=== PATIENT | male | born 1975 | race Caucasian/White ===

== ENCOUNTER 2022-05-13 15:58 | Inpatient (IN) | payer MEDICARE ==
[~2022-05-13] VITALS: Ht 170.2 cm; Wt 92.1 kg
[2022-05-13 20:28] LABS: BASOPHILS % 0.4 % (0.0-2.0); EOSINOPHILS % 3.6 % (0.0-5.0); HEMATOCRIT. 27.7 % (42.0-52.0); HEMOGLOBIN. 9.5 g/dL (14.0-18.0); LYMPHOCYTES % 19.8 % (20.0-50.0); MEAN CORPUSCULAR HEMOGLOBIN 33.7 pg (28.0-32.0); MEAN CORPUSCULAR VOLUME 98.4 fL (80.0-94.0); MEAN PLATELET VOLUME 8.4 fl (7.4-10.4); MONOCYTES % 7.6 % (2.0-8.0); NEUTROPHILS % 68.6 % (40.0-76.0); PLATELET 181 x1000/uL (130-400); RED BLOOD CELL COUNT 2.82 mill/uL (4.7-6.1); RED CELL DISTRIBUTION WIDTH 15.5 % (11.6-14.6)
[2022-05-13 20:33] LABS: CHLORIDE 93 mEq/L (98-107)
[2022-05-13] MEDS ORDERED: MAGNESIUM/ALUMINUM HYDROXIDE/SIMETHICONE 30ML UDC PO PRN (22:00)
[2022-05-13] MEDS ORDERED: DEXTROSE 50% WATER 50ML SYRINGE IV PRN (22:00)
[2022-05-13] MEDS ORDERED: GUAIFENESIN 200MG/10ML SUGAR FREE UDC PO PRN (22:00)
[2022-05-13] MEDS ORDERED: IPRATROPIUM/ALBUTEROL 0.5-3(2.5)MG/3ML NEB NEB PRN (22:00)
[2022-05-13] MEDS ORDERED: ZOLPIDEM TARTRATE 5MG TABLET PO PRN (22:00)
[2022-05-13] MEDS ORDERED: NA PHOS,M-B/NA PHOS,DI-BA ENEMA 118ML PR PRN (22:00)
[2022-05-13] MEDS ORDERED: NITROGLYCERIN 0.4MG TABLET SL SL PRN (22:00)
[2022-05-13] MEDS ORDERED: CLONIDINE 0.1MG TABLET PO PRN (22:00)
[2022-05-13] MEDS ORDERED: DOCUSATE SODIUM 100MG CAPSULE PO PRN (22:00)
[2022-05-13] MEDS ORDERED: ACETAMINOPHEN 325MG TABLET PO PRN (22:00)
[2022-05-13] MEDS ORDERED: ASPIRIN 325MG EC TABLET PO ONE (22:15)
[2022-05-13] MEDS ORDERED: TRAMADOL 50MG TABLET PO ONE (22:15)
[2022-05-13 22:49] LABS: T4 FREE 1.15 ng/dL (0.76-1.46)
[2022-05-13 23:03] LABS: FOLIC ACID (FOLATE) SERUM 6.8 ng/mL (>5.38)
[2022-05-13 23:17] LABS: CREATINE KINASE MB FRACTION 1.2 ng/mL (0.5-3.6)
[2022-05-13] MEDS: ENOXAPARIN 30MG/0.3ML SYR SUBCUT SCH (23:19)
[2022-05-13] MEDS: INSULIN GLARGINE 100 UNITS/ML SUBCUT SCH (23:57)
[2022-05-14] VITALS (10 sets, daily range): BP systolic 101–114; BP diastolic 54–70
[2022-05-14 00:40] LABS: BG BASE EXCESS 5.9 mmol/L (-2.0-2.0); BG CARBOXYHEMOGLOBIN 0.6 % (0.5-1.5); BG DEOXYHEMOGLOBIN 4.2 % (0.0-5.0); BG FRACTION INSPIRED OXYGEN 44; BG HCO3 ACT 30.3 mmol/L (22.0-26.0); BG METHEMOGLOBIN 0.3 % (0.0-1.5); BG OXYGEN SATURATION 95.8 % (92.0-98.5); BG OXYHEMOGLOBIN 94.9 % (94.0-97.0); BG PCO2 43.4 mmHg (35.0-45.0); BG PH 7.462 (7.350-7.450); BG PO2 78.2 mmHg (75.0-100.0); BG SAMPLE SITE RIGHT BRACHIAL; BG TOTAL HEMOGLOBIN 10.4 g/dL (12.0-18.0); BG VENT MODE NASAL CANNULA
[2022-05-14] MEDS ORDERED: POTASSIUM CHLORIDE 20MEQ TABLET SR PO NR (01:00)
[2022-05-14 05:28] LABS: BASOPHILS % 0.3 % (0.0-2.0); EOSINOPHILS % 5.5 % (0.0-5.0); HEMATOCRIT. 26.8 % (42.0-52.0); HEMOGLOBIN. 9.4 g/dL (14.0-18.0); LYMPHOCYTES % 28.3 % (20.0-50.0); MEAN CORPUSCULAR HEMOGLOBIN 34.9 pg (28.0-32.0); MEAN CORPUSCULAR VOLUME 99.2 fL (80.0-94.0); MEAN PLATELET VOLUME 8.8 fl (7.4-10.4); MONOCYTES % 8.8 % (2.0-8.0); NEUTROPHILS % 57.1 % (40.0-76.0); PLATELET 181 x1000/uL (130-400); RED CELL DISTRIBUTION WIDTH 15.3 % (11.6-14.6)
[2022-05-14 05:33] LABS: CHLORIDE 93 mEq/L (98-107)
[2022-05-14 05:41] LABS: CREATINE KINASE MB FRACTION 1.3 ng/mL (0.5-3.6); PHOSPHORUS 3.9 mg/dL (2.5-4.9)
[2022-05-14] MEDS ORDERED: AZITHROMYCIN 500 MG in DEXT 5% WATER 250 ML IV SCH (07:00)
[2022-05-14] MEDS: BLOOD SUGAR DIAGNOSTIC STRIP TEST SCH ×4 (08:05→21:36)
[2022-05-14] MEDS: SEVELAMER CARBONATE 800 MG TABLET PO SCH ×3 (08:17→18:02)
[2022-05-14] MEDS: INSULIN LISPRO 100 UNITS/ML SUBCUT SCH ×4 (08:18→21:35)
[2022-05-14] MEDS ORDERED: ALBUTEROL (0.083%) 2.5MG/3ML NEB HHN PRN (11:15)
[2022-05-14] MEDS ORDERED: IPRATROPIUM BROMIDE (0.02%) 0.5MG/2.5ML NEB HHN PRN (11:15)
[2022-05-14 16:04] LABS: HEPATITIS B SURFACE ANTIGEN NEGATIVE
[2022-05-14] MEDS: ACETAMINOPHEN 325MG TABLET PO PRN (20:29)
[2022-05-14] MEDS: ENOXAPARIN 30MG/0.3ML SYR SUBCUT SCH (21:00)
[2022-05-14] MEDS: EPOETIN ALFA-EPBX 4,000 UNIT/ML VIAL SUBCUT SCH (21:35)
[2022-05-14] MEDS: INSULIN GLARGINE 100 UNITS/ML SUBCUT SCH (21:35)
[2022-05-14] MEDS: ONDANSETRON HCL 4MG/2ML INJ IV PRN (22:48)
[2022-05-15] VITALS (18 sets, daily range): BP systolic 92–140; BP diastolic 40–91
[2022-05-15] MEDS: ACETAMINOPHEN 325MG TABLET PO PRN ×3 (02:38→23:07)
[2022-05-15] MEDS ORDERED: SODIUM CHLORIDE 0.9% 1000ML BAG (SEPSIS BOLUS) IV ONE (03:15)
[2022-05-15] MEDS ORDERED: SODIUM CHLORIDE 0.9% 500 ML IV NR (03:30)
[2022-05-15] MEDS: BLOOD SUGAR DIAGNOSTIC STRIP TEST SCH ×4 (06:32→20:37)
[2022-05-15 07:15] LABS: BASOPHILS % 0.4 % (0.0-2.0); EOSINOPHILS % 6.4 % (0.0-5.0); HEMATOCRIT. 28.1 % (42.0-52.0); HEMOGLOBIN. 9.6 g/dL (14.0-18.0); MEAN CORPUSCULAR HEMOGLOBIN 34.1 pg (28.0-32.0); MEAN CORPUSCULAR VOLUME 99.2 fL (80.0-94.0); MEAN PLATELET VOLUME 9.2 fl (7.4-10.4); MONOCYTES % 10.3 % (2.0-8.0); NEUTROPHILS % 57.9 % (40.0-76.0); PLATELET 180 x1000/uL (130-400); RED BLOOD CELL COUNT 2.83 mill/uL (4.7-6.1)
[2022-05-15 07:43] LABS: PHOSPHORUS 4.6 mg/dL (2.5-4.9)
[2022-05-15] MEDS: INSULIN LISPRO 100 UNITS/ML SUBCUT SCH ×4 (08:10→20:37)
[2022-05-15] MEDS: ASPIRIN 325MG EC TABLET PO SCH ×2 (10:18→10:21)
[2022-05-15] MEDS: SEVELAMER CARBONATE 800 MG TABLET PO SCH ×3 (10:18→18:02)
[2022-05-15] MEDS: CEFTRIAXONE 2 G in DEXTROSE 5% WATER 50 ML IV SCH ×2 (10:18→10:20)
[2022-05-15] MEDS: FAMOTIDINE 20MG TABLET PO SCH ×2 (10:19→10:20)
[2022-05-15] MEDS: AMLODIPINE 10MG TABLET PO SCH ×2 (10:19→10:20)
[2022-05-15] MEDS: INSULIN GLARGINE 100 UNITS/ML SUBCUT SCH (20:37)
[2022-05-15] MEDS: ENOXAPARIN 30MG/0.3ML SYR SUBCUT SCH (20:38)
[2022-05-15] MEDS: ONDANSETRON HCL 4MG/2ML INJ IV PRN (23:07)
[2022-05-16] VITALS: BP 120/67
[2022-05-16 04:00] VITALS: BP 114/72
[2022-05-16 07:07] LABS: BASOPHILS % 0.6 % (0.0-2.0); EOSINOPHILS % 7.5 % (0.0-5.0); HEMATOCRIT. 27.5 % (42.0-52.0); HEMOGLOBIN. 9.5 g/dL (14.0-18.0); LYMPHOCYTES % 33.9 % (20.0-50.0); MEAN CORPUSCULAR VOLUME 98.5 fL (80.0-94.0); MEAN PLATELET VOLUME 9.1 fl (7.4-10.4); MONOCYTES % 11.6 % (2.0-8.0); NEUTROPHILS % 46.4 % (40.0-76.0); PLATELET 178 x1000/uL (130-400); RED CELL DISTRIBUTION WIDTH 15.5 % (11.6-14.6)
[2022-05-16 07:16] LABS: PHOSPHORUS 3.8 mg/dL (2.5-4.9)
[2022-05-16 07:58] VITALS: BP 132/76
[2022-05-16] MEDS: BLOOD SUGAR DIAGNOSTIC STRIP TEST SCH ×4 (07:59→21:00)
[2022-05-16] MEDS: CEFTRIAXONE 2 G in DEXTROSE 5% WATER 50 ML IV SCH (08:00)
[2022-05-16] MEDS: SEVELAMER CARBONATE 800 MG TABLET PO SCH ×3 (08:00→16:43)
[2022-05-16] MEDS: ASPIRIN 325MG EC TABLET PO SCH (08:01)
[2022-05-16] MEDS: INSULIN LISPRO 100 UNITS/ML SUBCUT SCH ×4 (08:01→21:00)
[2022-05-16] MEDS: AMLODIPINE 10MG TABLET PO SCH (08:02)
[2022-05-16] MEDS: AZITHROMYCIN 500 MG TABLET PO SCH (08:03)
[2022-05-16] MEDS: FAMOTIDINE 20MG TABLET PO SCH (08:03)
[2022-05-16] MEDS: ACETAMINOPHEN 325MG TABLET PO PRN (08:59)
[2022-05-16 12:00] VITALS: BP 116/76
[2022-05-16 12:18] LABS: BG DEOXYHEMOGLOBIN 29.8 % (0.0-5.0); BG FRACTION INSPIRED OXYGEN 21; BG HCO3 ACT 27.7 mmol/L (22.0-26.0); BG METHEMOGLOBIN 0.3 % (0.0-1.5); BG OXYGEN SATURATION 69.8 % (92.0-98.5); BG OXYHEMOGLOBIN 68.9 % (94.0-97.0); BG PCO2 67.6 mmHg (35.0-45.0); BG PO2 40.9 mmHg (75.0-100.0); BG SAMPLE SITE RIGHT BRACHIAL; BG TOTAL HEMOGLOBIN 11.2 g/dL (12.0-18.0); BG VENT MODE ROOM AIR
[2022-05-16 15:44] LABS: BG BASE EXCESS 0.3 mmol/L (-2.0-2.0); BG CARBOXYHEMOGLOBIN 0.8 % (0.5-1.5); BG DEOXYHEMOGLOBIN 11.5 % (0.0-5.0); BG FRACTION INSPIRED OXYGEN 21; BG HCO3 ACT 26.6 mmol/L (22.0-26.0); BG METHEMOGLOBIN 0.3 % (0.0-1.5); BG OXYGEN SATURATION 88.4 % (92.0-98.5); BG OXYHEMOGLOBIN 87.4 % (94.0-97.0); BG PCO2 51.1 mmHg (35.0-45.0); BG PH 7.335 (7.350-7.450); BG PO2 55.4 mmHg (75.0-100.0); BG SAMPLE SITE RIGHT RADIAL; BG TOTAL HEMOGLOBIN 10.5 g/dL (12.0-18.0); BG VENT MODE ROOM AIR
[2022-05-16 15:57] VITALS: BP 118/66
[2022-05-16 20:00] VITALS: BP 133/79
[2022-05-16] MEDS: EPOETIN ALFA-EPBX 4,000 UNIT/ML VIAL SUBCUT SCH (21:12)
[2022-05-16] MEDS: INSULIN GLARGINE 100 UNITS/ML SUBCUT SCH (21:13)
[2022-05-16] MEDS: ENOXAPARIN 30MG/0.3ML SYR SUBCUT SCH (21:13)
[2022-05-17] VITALS: BP 126/74
[2022-05-17 04:00] VITALS: BP 130/76
[2022-05-17] MEDS: BLOOD SUGAR DIAGNOSTIC STRIP TEST SCH ×2 (06:22→12:55)
[2022-05-17 06:46] LABS: INR 1.2; PROTHROMBIN TIME 12.6 sec (9.6-11.0)
[2022-05-17] MEDS: INSULIN LISPRO 100 UNITS/ML SUBCUT SCH ×2 (07:58→12:55)
[2022-05-17 08:00] VITALS: BP 168/78
[2022-05-17] MEDS: AZITHROMYCIN 500 MG TABLET PO SCH (08:00)
[2022-05-17] MEDS: CEFTRIAXONE 2 G in DEXTROSE 5% WATER 50 ML IV SCH (08:00)
[2022-05-17] MEDS: SEVELAMER CARBONATE 800 MG TABLET PO SCH ×2 (08:00→14:52)
[2022-05-17] MEDS: FAMOTIDINE 20MG TABLET PO SCH (08:00)
[2022-05-17] MEDS: AMLODIPINE 10MG TABLET PO SCH (08:25)
[2022-05-17 09:15] LABS: BG BASE EXCESS 1.3 mmol/L (-2.0-2.0); BG CARBOXYHEMOGLOBIN 0.6 % (0.5-1.5); BG FRACTION INSPIRED OXYGEN 30; BG HCO3 ACT 25.9 mmol/L (22.0-26.0); BG METHEMOGLOBIN 0.2 % (0.0-1.5); BG OXYHEMOGLOBIN 95.2 % (94.0-97.0); BG PH 7.419 (7.350-7.450); BG PO2 78.9 mmHg (75.0-100.0); BG SAMPLE SITE RIGHT BRACHIAL; BG TOTAL HEMOGLOBIN 10.7 g/dL (12.0-18.0); BG VENT MODE NASAL CANNULA
[2022-05-17 12:00] VITALS: BP 136/72
[2022-05-17 12:17] LABS: BG CARBOXYHEMOGLOBIN 0.8 % (0.5-1.5); BG DEOXYHEMOGLOBIN 9.8 % (0.0-5.0); BG FRACTION INSPIRED OXYGEN 21; BG HCO3 ACT 27.3 mmol/L (22.0-26.0); BG METHEMOGLOBIN 0.1 % (0.0-1.5); BG OXYGEN SATURATION 90.1 % (92.0-98.5); BG OXYHEMOGLOBIN 89.3 % (94.0-97.0); BG PCO2 45.9 mmHg (35.0-45.0); BG PH 7.393 (7.350-7.450); BG PO2 59.6 mmHg (75.0-100.0); BG SAMPLE SITE RIGHT RADIAL; BG TOTAL HEMOGLOBIN 10.3 g/dL (12.0-18.0); BG VENT MODE ROOM AIR
[2022-05-17 13:57] VITALS: BP 135/80
[2022-05-17] MEDS ORDERED: ENOXAPARIN 40MG/0.4ML SYR SUBCUT SCH (21:00)
== END 2022-05-17 16:00 | disposition home or self-care (01) | DRG 280 ==
LOC: EDBD 15:58 → ER 15:58 → MICUSO 21:44 → SUPCPDRO 21:51 → 7WST 05-14 11:07
PROVIDERS: ADMIT Internal Medicine; ATTEND Internal Medicine
PROC: 5A1D70Z Performance of Urinary Filtration, Intermittent, Less than 6 Hours Per Day (ICD-10-PCS; 2022-05-15)
PROC: 5A09357 Assistance with Respiratory Ventilation, Less than 24 Consecutive Hours, Continuous Positive Airway Pressure (ICD-10-PCS; principal; 2022-05-16)
DX: I13.2 Hypertensive heart and chronic kidney disease with heart failure and with stage 5 chronic kidney disease, or end stage renal disease (principal); I21.4 Non-ST elevation (NSTEMI) myocardial infarction; I50.33 Acute on chronic diastolic (congestive) heart failure; J96.01 Acute respiratory failure with hypoxia; N18.6 End stage renal disease; J96.02 Acute respiratory failure with hypercapnia; E87.1 Hypo-osmolality and hyponatremia; E44.1 Mild protein-calorie malnutrition; G93.40 Encephalopathy, unspecified; D63.8 Anemia in other chronic diseases classified elsewhere; E87.6 Hypokalemia; Z20.822 Contact with and (suspected) exposure to COVID-19; E11.22 Type 2 diabetes mellitus with diabetic chronic kidney disease; E78.5 Hyperlipidemia, unspecified; E11.649 Type 2 diabetes mellitus with hypoglycemia without coma; E11.65 Type 2 diabetes mellitus with hyperglycemia; D72.10 Eosinophilia, unspecified; H91.92 Unspecified hearing loss, left ear; I07.1 Rheumatic tricuspid insufficiency; Z99.2 Dependence on renal dialysis; Z79.4 Long term (current) use of insulin; Z79.899 Other long term (current) drug therapy; Z91.14 Patient's other noncompliance with medication regimen; Z68.31 Body mass index [BMI] 31.0-31.9, adult; Z82.49 Family history of ischemic heart disease and other diseases of the circulatory system; Z83.3 Family history of diabetes mellitus
CPT/HCPCS: 36415; 36600; 71045; 80048; 80053; 80061; 82375; 82550; 82553; 82607; 82746; 82805; 82962; 83036; 83540; 83550; 83605; 83735; 83880; 84100; 84145; 84439; 84443; 84484; 85025; 86705; 86709; 86803; 87340; 87426; 90935; 93005; 93306; 93970; 94660; 99285; J0456; J0696; J0885; J1650; J1815; J2405; J7060